=== PATIENT | male | born 1965 | race Caucasian/White ===

== ENCOUNTER 2021-05-22 21:28 | Emergency (ER) | payer OTHER ==
[~2021-05-22 21:28] MED LIST: ATARAX25 MG PO; BENADRYL25 MG PO; DERMAREST ECZE118 ML TOP; HYDROCORTISONE30 G5 TOP; MEDROL 4MG DOSEP4 MG PO; PEPCID AC20 MG PO; PREDNISONE 10MG10 MG PO; PREDNISONE 20MG20 MG PO; ZANTAC150 MG PO; ZYRTEC10 MG PO
== END 2021-05-22 22:20 | disposition home or self-care (01) ==
LOC: FER 21:28
DX: L29.9 Pruritus, unspecified (principal); J44.9 Chronic obstructive pulmonary disease, unspecified; F17.200 Nicotine dependence, unspecified, uncomplicated
CPT/HCPCS: 99282; J2930

== ENCOUNTER 2021-06-19 16:00 | Emergency (ER) | payer OTHER ==
[2021-06-19] MEDS ORDERED: PREDNISONE 20MG20 MG PO (18:19)
== END 2021-06-19 18:26 | disposition home or self-care (01) ==
LOC: FER 16:00
DX: L40.9 Psoriasis, unspecified (principal); I25.2 Old myocardial infarction; F17.210 Nicotine dependence, cigarettes, uncomplicated
CPT/HCPCS: J1100